=== PATIENT | male | born 1945 | race Caucasian/White ===

== ENCOUNTER 2017-07-24 17:46 | Emergency (ER) | payer OTHER ==
[2017-07-24 17:55] VITALS: BP 140/97; PULSE 72; RESP 16; TEMP 98.1; O2SAT 96
[2017-07-24] MEDS ORDERED: RIVAROXABAN 15 MG TAB PO ONE (18:25)
--- NOTE | 2017-07-24 18:27 | EDPHY ---
H & P Time Seen by Provider: 07/24/17 18:03 HPI/ROS: CHIEF COMPLAINT: Positive for DVT HISTORY OF PRESENT ILLNESS: 71-year-old man had DVT in 2015 shortly after having quadriceps tendon repair in 2014. He was treated with Xarelto and then saw his doctor in November and anticoagulation was stopped. At that time I was able to review the physician note on his phone which says that an ultrasound shows "partially compressible nonocclusive known thrombus is visualized in the proximal to distal femoral and proximal popliteal veins. Calf veins appear patent. " The patient presents today with 3 weeks of right hip and groin pain feeling like a muscle strain is flexor area and was sent to the Radiology Department for an ultrasound today which showed clot in both calf veins as well as his femoral. In comparison to the verbal report from his ultrasound in November of 2016 the calf vein clot appears to be new. He does not have chest pain or shortness of breath and no weakness or numbness in the foot no skin rash. REVIEW OF SYSTEMS: Eye: no change in vision ENT: no sore throat Cardiac: no chest pain or syncope Pulmonary: no cough or SOB Abdomen: No abdominal pain Musculoskeletal: Pain in the right hip which radiates the leg as noted above, feels like a groin strain. Skin: no rash Neuro: no headache Constitutional: no fever : no urinary symptoms A comprehensive 10 point review of systems is otherwise negative aside from elements mentioned in the history of present illness. PAST MEDICAL HISTORY: Previous DVT, quadriceps tendon repair. Social history: Primary care is at [facility] General Appearance: Alert and conversant, cooperative. Eyes: No scleral icterus. ENT, Mouth: Normal mucous membranes. Respiratory: Normal respiratory effort, breath sounds equal, lungs are clear to auscultation. Cardiovascular: Regular rate and rhythm. Gastrointestinal: Abdomen is soft and non tender. Neurological: Alert, cooperative, ambulatory, normal motor and sensory in right foot. Skin: Warm and dry, no rashes. Musculoskeletal: No peripheral edema. Compartments are soft in the right leg, hip is not tender to rotation or axial loading, normal range of motion of right hip knee and ankle. Psychiatric: Not agitated. Emergency Department course/MDM: Discussed treatment options. With apparent new clot will elect to treat with Xarelto, discussed with the patient and consented. He has tolerated this medication before. He does not appear to have signs or symptoms of pulmonary embolism. He will take a copy of his ultrasound today to his Dr. at [facility] next week to discuss whether this clot looks like it is new or old and whether he should be on continued anticoagulation. Smoking Status: Former smoker Constitutional: Initial Vital Signs Temperature (C) 36.7 C 07/24/17 17:50 Heart Rate 72 07/24/17 17:50 Respiratory Rate 16 07/24/17 17:50 Blood Pressure 140/97 H 07/24/17 17:50 O2 Sat (%) 96 07/24/17 17:50 O2 Delivery Mode Room Air Allergies/Adverse Reactions: Penicillins Allergy (Intermediate, Verified 08/26/15 07:41) Home Medications: Medication Instructions Recorded Aspirin 07/24/17 Rivaroxaban [Xarelto 15mg (*)] 15 mg PO Q12 #14 tab 07/24/17 Simvastatin 07/24/17 Medical Decision Making - Diagnostics Imaging Results: Imaging Impressions Extremity Venous Study 07/24/17 16:45 Impression: Positive deep venous thrombosis in the right mid to distal femoral vein and in the right calf peroneal veins. Findings and recommendations given to SULTANA CACERES at 17:18 hour, 07/24/2017. Final report concurs with initial preliminary interpretation. Patient is being sent to the emergency department. Findings and recommendations discussed with Emergency Department physician, Dr. Rafael Crook at 17:37 hour, 07/24/2017. Final report concurs with initial preliminary interpretation. A test result has been communicated to a licensed care provider and documented in the [employer] Critical Result system on 07/24/2017 17:38, Message ID [id number]. - Data Points Laboratory Results: Laboratory Results 07/24/17 18:30 07/24/17 18:30 07/24/17 07/24/17 07/24/17 18:30 18:30 18:30 WBC 5.00 10^3/uL 10^3/uL (3.80-9.50) RBC 4.95 10^6/uL 10^6/uL (4.40-6.38) Hgb 17.0 g/dL g/dL (13.7-17.5) POC Hgb Hct 47.4 % % (40.0-51.0) POC Hct MCV 95.8 fL fL (81.5-99.8) MCH 34.3 pg H pg (27.9-34.1) MCHC 35.9 g/dL g/dL (32.4-36.7) RDW 12.4 % % (11.5-15.2) Plt Count 213 10^3/uL 10^3/uL (150-400) MPV 9.4 fL fL (8.7-11.7) Neut % (Auto) 44.6 % % (39.3-74.2) Lymph % (Auto) 39.4 % % (15.0-45.0) Otero % (Auto) 10.2 % % (4.5-13.0) Eos % (Auto) 5.0 % % (0.6-7.6) Baso % (Auto) 0.8 % % (0.3-1.7) Nucleat RBC Rel Count 0.0 % % (0.0-0.2) Absolute Neuts (auto) 2.23 10^3/uL 10^3/uL (1.70-6.50) Absolute Lymphs (auto) 1.97 10^3/uL 10^3/uL (1.00-3.00) Absolute Monos (auto) 0.51 10^3/uL 10^3/uL (0.30-0.80) Absolute Eos (auto) 0.25 10^3/uL 10^3/uL (0.03-0.40) Absolute Basos (auto) 0.04 10^3/uL 10^3/uL (0.02-0.10) Absolute Nucleated RBC 0.00 10^3/uL 10^3/uL (0-0.01) Immature Gran % 0.0 % % (0.0-1.1) Immature Gran # 0.00 10^3/uL 10^3/uL (0.00-0.10) PT 13.6 SEC SEC (12.0-15.0) INR 1.02 (0.83-1.16) APTT 26.3 SEC SEC (23.0-38.0) POC Sodium Sodium 141 mEq/L mEq/L (134-144) POC Potassium Potassium 4.8 mEq/L mEq/L (3.5-5.2) POC Chloride Chloride 104 mEq/L mEq/L (97-110) Carbon Dioxide 22 mEq/l mEq/l (22-31) Anion Gap 15 mEq/L mEq/L (8-16) POC BUN BUN 21 mg/dL mg/dL (7-23) Creatinine 0.9 mg/dL mg/dL (0.7-1.3) POC Creatinine Estimated GFR > 60 Glucose 83 mg/dL mg/dL (70-100) POC Glucose Calcium 9.8 mg/dL mg/dL (8.5-10.4) 07/24/17 18:27 WBC RBC Hgb POC Hgb 16.7 gm/dL gm/dL (13.7-17.5) Hct POC Hct 49 % % (40-51) MCV MCH MCHC RDW Plt Count MPV Neut % (Auto) Lymph % (Auto) Oter[place] % (Auto) Eos % (Auto) Baso % (Auto) Nucleat RBC Rel Count Absolute Neuts (auto) Absolute Lymphs (auto) Absolute Monos (auto) Absolute Eos (auto) Absolute Basos (auto) Absolute Nucleated RBC Immature Gran % Immature Gran # PT INR APTT POC Sodium 141 mEq/L mEq/L (134-144) Sodium POC Potassium 4.2 mEq/L mEq/L (3.3-5.0) Potassium POC Chloride 104 mEq/L mEq/L (97-110) Chloride Carbon Dioxide Anion Gap POC BUN 21 mg/dL mg/dL (7-23) BUN Creatinine POC Creatinine 1.0 mg/dL mg/dL (0.7-1.3) Estimated GFR Glucose POC Glucose 85 mg/dL mg/dL (70-100) Calcium Medications Given: Discontinued Medications Rivaroxaban (Xarelto) 15 mg PO EDNOW ONE Stop: 07/24/17 18:26 Last Admin: 07/24/17 18:45 Dose: 15 mg Point of Care Test Results: 07/24/17 18:27 POC Sodium 141 POC Potassium 4.2 POC Chloride 104 POC BUN 21 POC Creatinine 1.0 POC Glucose 85 Departure - Departure Disposition: Home, Routine, Self-Care Clinical Impression: DVT (deep venous thrombosis) Qualifiers: DVT location: lower extremity Affected thrombotic vein of extremity: femoral Chronicity: unspecified Laterality: right Qualified Code(s): I82.411 - Acute embolism and thrombosis of right femoral vein Condition: Good Instructions: Rivaroxaban (By mouth), Deep Vein Thrombosis (ED) Additional Instructions: Return immediately for chest pain or shortness of breath. Referrals: UNKNOWN,DR [Other] - As per Instructions (Followup with Dr. Buck at [facility] next week; bring CD with US on it to your appointment) Prescriptions: Rivaroxaban [Xarelto 15mg (*)] 15 mg PO Q12 #14 tab
[2017-07-24 18:43] LABS: PLATELET COUNT 213 10^3/uL (150-400)
[2017-07-24 18:58] LABS: INR 1.02 (0.83-1.16); PROTIME(PATIENT) 13.6 SEC (12.0-15.0)
== END 2017-07-24 18:48 | disposition home or self-care (01) ==
DX: I82.411 Acute embolism and thrombosis of right femoral vein (principal); Z79.01 Long term (current) use of anticoagulants; Z79.82 Long term (current) use of aspirin; Z87.891 Personal history of nicotine dependence
CPT/HCPCS: 82947-QW